=== PATIENT | female | born 1995 | race Caucasian/White ===

== ENCOUNTER 2020-09-28 21:43 | Day surgery (SDCO) | payer OTHER ==
[~2020-09-28] VITALS: Ht 157.5 cm; Wt 72.1 kg
[2020-09-29 00:37] LABS: BASOPHIL 0.3 % (0-2); EOSINOPHIL 0 % (0-5); HCT 39.5 % (37.0-47.0); HGB 13.8 g/dl (12.5-16.0); LYMPHOCYTE 9.2 % (15-48); MCH 31.2 pg (25.0-31.0); MCHC 34.9 g/dL (32.0-36.0); MCV 89.4 fL (78.0-100.0); MONOCYTE 8.2 % (0-12); MPV 10.5 fL (6.0-9.5); NRBC 0; PLT 193 K/uL (150-400); RBC 4.42 M/uL (4.20-5.40); RDW 12.1 % (11.5-14.0); WBC 7.7 K/uL (4.0-10.5)
[2020-09-29 00:52] LABS: BILIRUBIN - TOTAL 0.6 mg/dL (0.2-1.0); BUN/CREAT RATIO (CALC) 28.1 RATIO; CREATININE 0.64 mg/dL (0.51-0.95); GLOBULIN (CALCULATION) 3.5 g/dL; POTASSIUM 3.5 mmol/L (3.5-5.1); TOTAL PROTEIN 7.5 g/dL (6.4-8.2)
[2020-09-29 01:08] LABS: BILIRUBIN NEGATIVE (NEGATIVE); BLOOD NEGATIVE Ery/uL (NEGATIVE); CLARITY CLEAR (CLEAR); COLOR YELLOW (YELLOW); GLUCOSE (U) NORMAL (NORMAL); LEUKOCYTES 2+ Leu/uL (NEGATIVE); NITRITE NEGATIVE (NEGATIVE); PROTEIN TRACE (LOW) mg/dL (NEGATIVE); SPECIFIC GRAVITY >=1.030 (1.001-1.030); UROBILINOGEN 0.2 mg/dL (0.2-1.0); pH 5.5 (5.0-9.0)
[2020-09-29 01:14] LABS: BACTERIA 3+; SQUAMOUS EPITHELIAL CELLS 20-50; URINARY WBC 20-50
[2020-09-29 01:15] LABS: CORONAVIRUS 2019 SARS-COV-2 NEGATIVE (NEGATIVE)
[2020-09-29 01:48] LABS: INFLUENZA A NAA NEGATIVE (NEGATIVE)
[2020-09-29 01:52] LABS: BILIRUBIN 1+ mg/dL (NEGATIVE); BLOOD NEGATIVE Ery/uL (NEGATIVE); CLARITY CLEAR (CLEAR); COLOR YELLOW (YELLOW); GLUCOSE (U) NORMAL (NORMAL); LEUKOCYTES 1+ Leu/uL (NEGATIVE); NITRITE NEGATIVE (NEGATIVE); PROTEIN NEGATIVE (NEGATIVE); SPECIFIC GRAVITY >=1.030 (1.001-1.030); pH 5.5 (5.0-9.0)
[2020-09-29 02:00] LABS: BACTERIA 2+; MUCOUS MODERATE
[2020-09-29 02:01] LABS: AMORPHOUS URATES CRYSTALS TRACE
[2020-09-29 06:09] LABS: HCT 36.4 % (37.0-47.0); HGB 12.5 g/dl (12.5-16.0); MCH 30.9 pg (25.0-31.0); MCHC 34.3 g/dL (32.0-36.0); MCV 90.1 fL (78.0-100.0); MPV 10.5 fL (6.0-9.5); RBC 4.04 M/uL (4.20-5.40); RDW 12.3 % (11.5-14.0); WBC 5.4 K/uL (4.0-10.5)
[2020-09-29 06:50] LABS: ALBUMIN 3.5 g/dL (3.4-5.0); BILIRUBIN - TOTAL 0.4 mg/dL (0.2-1.0); BUN/CREAT RATIO (CALC) 25.4 RATIO; CREATININE 0.59 mg/dL (0.51-0.95); GLOBULIN (CALCULATION) 2.8 g/dL; POTASSIUM 3.5 mmol/L (3.5-5.1); TOTAL PROTEIN 6.3 g/dL (6.4-8.2)
[2020-09-29] MEDS ORDERED: BACTRIM DS TAB1 EACH PO (11:44)
[2020-09-30] MEDS ORDERED: ONDANSETRON ODT4 MG PO (09:39)
[2020-09-30] MEDS ORDERED: PHENERGAN25 M1 PO (09:39)
== END 2020-09-29 13:27 | disposition home or self-care (01) ==
LOC: FER 21:43 → FMS 09-29 02:16
PROVIDERS: Emergency Medicine; Nurse Practitioner; ADMIT Internal Medicine
DX: N39.0 Urinary tract infection, site not specified (principal); W55.51XA Bitten by raccoon, initial encounter; Z88.1 Allergy status to other antibiotic agents; Z20.822 Contact with and (suspected) exposure to COVID-19
CPT/HCPCS: 36415; 71046; 80053; 81001; 85025; 87040; 87088; 90375; 90471; 90675; G0378; J0696; J2405; J7030; U0002